=== PATIENT | female | born 1975 | race Caucasian/White ===

== ENCOUNTER 2022-03-05 18:02 | Emergency (ER) | payer BC, SELFPAY ==
--- NOTE | 2022-03-05 18:10 | ED.URI ---
HPI - URI/Sore Throat General Chief Complaint: Upper Respiratory Infection Stated Complaint: head congestion cough Time Seen by Provider: 03/05/22 18:10 Source: patient and RN notes reviewed History of Present Illness HPI Narrative: Patient is a 46-year-old female who presents the urgent care with complaints of cough, head congestion and headache. Patient states that started on Friday and then she woke up with fever blisters yesterday morning. Patient states that she has been using Mucinex. Denies of any fevers, nausea, vomiting. Denies of any ill exposures. No other acute complaints. No acute distress noted. Patient aware of the plan of care. Some parts of this dictation were generated by voice recognition software and may contain typographical and/or grammatical inaccuracies. Related Data Home Medications Medication Instructions Recorded Confirmed lisinopril 5 mg PO DAILY 03/05/22 03/05/22 metformin 500 mg PO TID 03/05/22 03/05/22 omeprazole 40 mg PO DAILY 03/05/22 03/05/22 rosuvastatin 10 mg PO DAILY 03/05/22 03/05/22 sitagliptin [Januvia] 100 mg PO DAILY 03/05/22 03/05/22 Allergies Allergy/AdvReac Type Severity Reaction Status Date / Time No Known Drug Allergies Allergy Unknown Unknown Verified 03/05/22 18:22 Review of Systems Review of Systems: CONSTITUTIONAL: Denies fever, chills, or sweats. EYES: Denies visual changes, redness, or discharge. ENT: Reports of rhinorrhea, head pressure and postnasal drainage CARDIOVASCULAR: Denies chest pain, palpitations, or edema. RESPIRATORY: Reports of cough without dyspnea GASTROINTESTINAL: Denies abdominal pain, nausea, vomiting, or diarrhea. GENITOURINARY: Denies dysuria or hematuria. SKIN: Denies rash or itching. MUSCULOSKELETAL: Denies back pain, joint pain, or myalgia. NEUROLOGIC: Denies headache, numbness, or weakness. All other systems reviewed are negative, except as documented in HPI. FORMERLY [facility] Family History Family History (Updated 06/02/17 @ 10:53 by DOCTOR UNKNOWN) Father Diabetes mellitus Hypertension Family history of malignant neoplasm Social History Social History Smoking status: Never smoker Alcohol intake: current Comments At the time of my signature, I reviewed and agree with the nursing past medical, surgical, social, and family history. There is no relevant family history pertinent to the patient complaint. Exam Narrative: GENERAL: This is a well-nourished, well-developed patient, in no apparent distress. HEAD: normocephalic, atraumatic. Frontal sinus tenderness EYES: PERRL. Sclera clear/white. Vision is grossly intact. EARS: External ears normal, auditory canals clear and without drainage, TMs normal without perforation. Hearing grossly intact. NOSE: External nose normal with no obvious nasal discharge, nares without redness, clear rhinorrhea. THROAT: Mucous membranes moist. Moderate erythema noted posterior oropharynx. Notable herpes simplex lesions to the upper lip NECK: Neck supple CARDIOVASCULAR: Regular rate and rhythm without murmurs, gallops, or rubs. RESPIRATORY: Clear to auscultation. Breath sounds equal bilaterally. No wheezes, rales, or rhonchi. SKIN: warm, intact with no suspicious lesions or rash, good texture and turgor. NEURO: awake, alert, and oriented to person, place and time. There were no obvious focal neurologic abnormalities. EXTREMITIES: No clubbing, cyanosis, or edema. Course Course Level of Care: Express Care Visit Vital Signs Vital signs: Vital Signs Temperature 98.4 F 03/05/22 18:12 Pulse Rate 72 03/05/22 18:12 Respiratory Rate 16 03/05/22 18:12 Blood Pressure 133/80 03/05/22 18:12 Pulse Oximetry 100 03/05/22 18:12 Temperature 98.4 F 03/05/22 18:12 Pulse Rate 72 03/05/22 18:12 Respiratory Rate 16 03/05/22 18:12 Blood Pressure 133/80 03/05/22 18:12 Pulse Oximetry 100 03/05/22 18:12 Reviewed MDM - URI/Sore Throat MDM Narrative Medical decision making narra
[2022-03-05 18:12] VITALS: BP 133/80; PULSE 72; RESP 16; TEMP 36.9; O2SAT 100
== END 2022-03-05 18:40 | disposition home or self-care (01) ==
PROVIDERS: Emergency Provider Nurse Practitioner Family; PCP Family Medicine
DX: B00.1 Herpesviral vesicular dermatitis (principal); J32.9 Chronic sinusitis, unspecified; E78.00 Pure hypercholesterolemia, unspecified; I10 Essential (primary) hypertension; K21.9 Gastro-esophageal reflux disease without esophagitis; E11.9 Type 2 diabetes mellitus without complications
CPT/HCPCS: 99203; G0463

== ENCOUNTER 2022-08-28 10:47 | Emergency (ER) | payer BC, SELFPAY ==
--- NOTE | 2022-08-28 10:49 | ED.URI ---
HPI - URI/Sore Throat General Chief Complaint: Upper Respiratory Infection Stated Complaint: Chest Congestion Time Seen by Provider: 08/28/22 10:49 Source: patient and RN notes reviewed History of Present Illness HPI Narrative: Patient is a 46-year-old female who presents the urgent care with complaints of chest congestion, wheezing at night, runny nose, headache and head congestion. Patient states that she has been taking [id number] cough medication, TheraFlu, nasal spray and Advil. Denies any fever, nausea, vomiting. Denies of any ill contacts. Patient states that symptoms started on Friday. No other acute complaints. No acute distress noted. Patient aware of the plan of care. Some parts of this dictation were generated by voice recognition software and may contain typographical and/or grammatical inaccuracies. Related Data Home Medications Medication Instructions Recorded Confirmed lisinopril 5 mg tablet 5 mg PO DAILY 03/05/22 08/28/22 metformin 500 mg tablet,extended 500 mg PO TID 03/05/22 08/28/22 release 24 hr omeprazole 40 mg capsule,delayed 40 mg PO DAILY 03/05/22 08/28/22 release rosuvastatin 10 mg tablet 10 mg PO DAILY 03/05/22 08/28/22 sitagliptin 100 mg tablet (Januvia) 100 mg PO DAILY 03/05/22 08/28/22 Allergies Allergy/AdvReac Type Severity Reaction Status Date / Time No Known Drug Allergies Allergy Unknown Unknown Verified 08/28/22 10:52 Review of Systems Review of Systems: CONSTITUTIONAL: Denies fever, chills, or sweats. EYES: Denies visual changes, redness, or discharge. ENT: Reports of rhinorrhea, head congestion postnasal drainage CARDIOVASCULAR: Denies chest pain, palpitations, or edema. RESPIRATORY: Reports of cough without dyspnea GASTROINTESTINAL: Denies abdominal pain, nausea, vomiting, or diarrhea. GENITOURINARY: Denies dysuria or hematuria. SKIN: Denies rash or itching. MUSCULOSKELETAL: Denies back pain, joint pain, or myalgia. NEUROLOGIC: Reports of headache All other systems reviewed are negative, except as documented in HPI. [facility] Family History Family History (Updated 06/02/17 @ 10:53 by DOCTOR UNKNOWN) Father Diabetes mellitus Hypertension Family history of malignant neoplasm Social History Social History Smoking status: Never smoker Alcohol intake: current Comments At the time of my signature, I reviewed and agree with the nursing past medical, surgical, social, and family history. There is no relevant family history pertinent to the patient complaint. Exam Narrative: GENERAL: This is a well-nourished, well-developed patient, in no apparent distress. HEAD: normocephalic, atraumatic. EYES: PERRL. Sclera clear/white. Vision is grossly intact. EARS: External ears normal, auditory canals clear and without drainage, TMs normal without perforation. Hearing grossly intact. NOSE: External nose normal with no obvious nasal discharge, nares without redness, no rhinorrhea. THROAT: Mucous membranes moist, posterior pharynx clear. Moderate postnasal drainage NECK: Neck supple CARDIOVASCULAR: Regular rate and rhythm without murmurs, gallops, or rubs. RESPIRATORY: Clear to auscultation. Breath sounds equal bilaterally. No wheezes, rales, or rhonchi. SKIN: warm, intact with no suspicious lesions or rash, good texture and turgor. NEURO: awake, alert, and oriented to person, place and time. There were no obvious focal neurologic abnormalities. EXTREMITIES: No clubbing, cyanosis, or edema. Course Course Level of Care: Express Care Visit Vital Signs Vital signs: Vital Signs Temperature 99.3 F 08/28/22 10:52 Pulse Rate 83 08/28/22 10:52 Respiratory Rate 16 08/28/22 10:52 Blood Pressure 134/85 08/28/22 10:52 Pulse Oximetry 99 08/28/22 10:52 Oxygen Delivery Room Air 08/28/22 10:52 Temperature 99.3 F 08/28/22 10:52 Pulse Rate 83 08/28/22 10:52 Respiratory Rate 16 08/28/22 10:52 Blood Pressure 134/85 08/28/22 10:52 Pulse Oximet
[2022-08-28 10:52] VITALS: BP 134/85; PULSE 83; RESP 16; TEMP 37.4; O2SAT 99
== END 2022-08-28 11:15 | disposition home or self-care (01) ==
PROVIDERS: Emergency Provider Nurse Practitioner Family; PCP Family Medicine
DX: J32.9 Chronic sinusitis, unspecified (principal); E78.00 Pure hypercholesterolemia, unspecified; I10 Essential (primary) hypertension; K21.9 Gastro-esophageal reflux disease without esophagitis; E11.9 Type 2 diabetes mellitus without complications
CPT/HCPCS: 99213; G0463

== ENCOUNTER 2024-02-09 10:05 | Emergency (ER) | payer BC, SELFPAY ==
[2024-02-09 10:09] VITALS: BP 137/80; PULSE 80; RESP 20; TEMP 36.8; O2SAT 100
--- NOTE | 2024-02-09 10:15 | ED.URI ---
HPI - URI/Sore Throat General Chief Complaint: Upper Respiratory Infection Stated Complaint: poss sinus infection Time Seen by Provider: 02/09/24 10:17 Source: patient, RN notes reviewed and old records reviewed Mode of arrival: ambulatory Limitations: no limitations History of Present Illness HPI Narrative: 48 year old female who presents to [facility] care with complaints of cough, sinus pressure and drainage of green tinged nasal mucous for the past 6 days. Patient reports that she has frontal sinus pressure and cough which is worse at night. Patient reports that she also has some fever sores to her upper lip and wound like some antiviral medication for these. Patient reports that she has history of past sinus infections and has been taking some OTC arianna seltzer severe cold medication. Patient denies any shortness of breath with no tachypnea noted. MD elicited complaint: cough, rhinorrhea, nasal congestion, sinus pain and other (fever blister) Pertinent past history: sinusitis Onset (ago): day(s) (6) Severity: moderate Description of mucous: green Able to tolerate fluids by mouth: Yes Treatments prior to arrival: other (arianna seltzer severe cold) Related Data Home Medications Medication Instructions Recorded Confirmed lisinopril 5 mg tablet 5 mg PO DAILY 03/05/22 02/09/24 metformin 500 mg tablet,extended 500 mg PO TID 03/05/22 02/09/24 release 24 hr omeprazole 40 mg capsule,delayed 40 mg PO DAILY 03/05/22 02/09/24 release rosuvastatin 10 mg tablet 10 mg PO DAILY 03/05/22 02/09/24 sitagliptin phosphate 100 mg 100 mg PO DAILY 03/05/22 02/09/24 tablet (Januvia) Allergies Allergy/AdvReac Type Severity Reaction Status Date / Time prednisone Allergy Unknown Unknown Verified 02/09/24 10:33 Review of Systems Review of Systems: CONSTITUTIONAL: Reports malaise, chills, sweats, or fever. EYES: Denies visual changes, redness, or discharge. ENT: Reports rhinorrhea, congestion, sinus pain, no otalgia and no sore throat positive for fever blisters upper lip CARDIOVASCULAR: Denies chest pain, palpitations, or edema. RESPIRATORY: Reports cough.? Denies dyspnea. GASTROINTESTINAL: Denies abdominal pain, nausea, vomiting, diarrhea SKIN: Denies rash or itching. MUSCULOSKELETAL: Denies myalgia. NEUROLOGIC: Reports frontal headache. All systems reviewed & are unremarkable except as noted in HPI and below PMFSH Past Medical History Medical History (Updated 02/10/24 @ 08:48 by Adela Connelly NP) Diabetes Endometriosis Esophageal polyp excision of GERD (gastroesophageal reflux disease) Hyperlipemia, mixed Hypertension Surgical History Surgical History (Updated 02/10/24 @ 08:29 by Adela Connelly NP) H/O: hysterectomy Previous section Family History Family History (Updated 06/02/17 @ 10:53 by DOCTOR UNKNOWN) Father Diabetes mellitus Hypertension Family history of malignant neoplasm Social History Social History (Updated 02/10/24 @ 08:32 by Adela Connelly NP) Smoking status: Never smoker Alcohol intake: current Substance use type: does not use Living arrangements: with family Gender identity (if verbalized by the patient): Female Comments At time of signature, agree with nursing past medical, surgical, social and family history. There is no relevant family history pertinent to the presenting complaint Exam Narrative: GENERAL: Well-appearing, well-nourished, and in no acute distress. HEAD: Normocephalic EYES: PERRLA, conjunctivae clear ENT: Nares clear, turbinates edematous and erythematous, clear to greenish discharge, frontal sinus pressure.. Mucous membranes moist. TM pearly henry with dull light reflex bilaterally; no tragal tenderness. Oropharynx erythematous without lesions. Tonsils not enlarged and without exudate, no drooling, no hoarseness, no trismus, uvula midline.post nasal drainage noted. NECK: Supple. No lymphadenopathy CHEST: Clear
== END 2024-02-09 10:45 | disposition home or self-care (01) ==
PROVIDERS: Emergency Provider Registered Nurse; PCP Family Medicine
DX: J32.9 Chronic sinusitis, unspecified (principal); B00.1 Herpesviral vesicular dermatitis; E11.9 Type 2 diabetes mellitus without complications; Z79.84 Long term (current) use of oral hypoglycemic drugs; N80.9 Endometriosis, unspecified; K21.9 Gastro-esophageal reflux disease without esophagitis; E78.5 Hyperlipidemia, unspecified; I10 Essential (primary) hypertension
CPT/HCPCS: 99213; G0463

== ENCOUNTER 2024-03-26 08:03 | Emergency (ER) | payer BC, SELFPAY ==
--- NOTE | 2024-03-26 08:04 | ED.URI ---
HPI - URI/Sore Throat General Chief Complaint: Upper Respiratory Infection Stated Complaint: Cough Time Seen by Provider: 03/26/24 08:14 Source: patient, RN notes reviewed and old records reviewed Mode of arrival: ambulatory Limitations: no limitations History of Present Illness HPI Narrative: 48-year-old female presents to the [facility] with complaints of a cough that started on Friday, 2 days ago. Reports that she had some dizziness on Friday 2 days ago. None today. Patient reports not taking her diabetes medication for her cholesterol medication last night. Patient denies any chest pain MD elicited complaint: cough Related Data Home Medications Medication Instructions Recorded Confirmed lisinopril 5 mg tablet 5 mg PO DAILY 03/05/22 02/09/24 metformin 500 mg tablet,extended 500 mg PO TID 03/05/22 02/09/24 release 24 hr omeprazole 40 mg capsule,delayed 40 mg PO DAILY 03/05/22 02/09/24 release rosuvastatin 10 mg tablet 10 mg PO DAILY 03/05/22 02/09/24 sitagliptin phosphate 100 mg 100 mg PO DAILY 03/05/22 02/09/24 tablet (Januvia) Allergies Allergy/AdvReac Type Severity Reaction Status Date / Time prednisone Allergy Unknown Unknown Verified 02/09/24 10:33 Review of Systems Review of Systems: All systems reviewed & are unremarkable except as noted in HPI and below Constitutional: Constitutional: Reports no additional constitutional complaints Eyes: Eyes: Reports no additional eye complaints ENT: Reports system reviewed and no additional complaints, except as documented Cardiovascular: Cardiovascular: Reports no additional cardiovascular complaints, Denies chest pain and Denies dyspnea Respiratory: Respiratory: Reports as per HPI, Denies chest congestion, Reports cough and Denies dyspnea Gastrointestinal: Gastrointestinal: Reports no additional gastrointestinal complaints, Denies abdominal pain, Denies nausea and Denies vomiting Musculoskeletal: Musculoskeletal: Reports no additional musculoskeletal complaints Integumentary/Breasts: Skin/Breast: Reports system reviewed and no additional complaints, except as docu Neurologic: Reports system reviewed and no additional complaints, except as documented Psychiatric: Psychiatric: Reports no additional psychiatric complaints Allergic/Immunologic: Allergic/Immunologic: Reports no additional allergic/immunologic complaints PMFSH Past Medical History Medical History Diabetes Endometriosis Esophageal polyp excision of GERD (gastroesophageal reflux disease) Hyperlipemia, mixed Hypertension Surgical History Surgical History H/O: hysterectomy Previous section Family History Family History Father Diabetes mellitus Hypertension Family history of malignant neoplasm Social History Social History Smoking status: Never smoker Alcohol intake: current Substance use type: does not use Living arrangements: with family Gender identity (if verbalized by the patient): Female Comments At the time of my signature, I reviewed and agree with the nursing past medical, surgical, social, and family history. There is no relevant family history pertinent to the patient complaint. Exam Const: General: cooperative, healthy appearing, comfortable, no acute distress, well developed, alert and well nourished Nutritional Appearance: well nourished Orientation/consciousness: patient oriented x3 Limitations: no limitations HENMT: Head: normal to inspection Ears: hearing grossly normal bilaterally, external ears normal, TM's normal bilaterally, EAC's normal, mastoids normal and no periauricular adenopathy Face/Nose/Sinus: Normal external nose present, Normal nares present, Normal nasal mucous membranes and turbinates present, N
[2024-03-26 08:09] VITALS: BP 138/93; PULSE 83; RESP 20; TEMP 36.6; O2SAT 100
== END 2024-03-26 08:33 | disposition home or self-care (01) ==
PROVIDERS: Emergency Provider Nurse Practitioner; PCP Family Medicine
DX: J40 Bronchitis, not specified as acute or chronic (principal); R09.82 Postnasal drip; E11.9 Type 2 diabetes mellitus without complications; Z79.84 Long term (current) use of oral hypoglycemic drugs; N80.9 Endometriosis, unspecified; K21.9 Gastro-esophageal reflux disease without esophagitis; E78.5 Hyperlipidemia, unspecified; I10 Essential (primary) hypertension
CPT/HCPCS: 99213; G0463

== ENCOUNTER 2024-06-29 18:31 | Emergency (ER) | payer BC, SELFPAY ==
[2024-06-29 18:36] VITALS: BP 121/79; PULSE 81; RESP 20; TEMP 37.1; O2SAT 100
--- NOTE | 2024-06-29 18:44 | ED.URI ---
HPI - URI/Sore Throat General Chief Complaint: Upper Respiratory Infection Stated Complaint: sinus stuff History of Present Illness HPI Narrative: Patient presents with nasal congestion no fever no body aches no cough no shortness of breath no chest pain. Patient states she has a history of allergies and feels like she is having allergy flare. Patient states she uses her Flonase nasal spray and taking Zyrtec daily. Related Data Home Medications Medication Instructions Recorded Confirmed lisinopril 5 mg tablet 5 mg PO DAILY 03/05/22 06/29/24 metformin 500 mg tablet,extended 500 mg PO TID 03/05/22 06/29/24 release 24 hr omeprazole 40 mg capsule,delayed 40 mg PO DAILY 03/05/22 06/29/24 release rosuvastatin 10 mg tablet 10 mg PO DAILY 03/05/22 06/29/24 empagliflozin 25 mg tablet mg 06/29/24 (Jardiance) tirzepatide 2.5 mg/0.5 mL 2.5 mg subcut WEEKLY 06/29/24 06/29/24 subcutaneous pen injector (Humza) Allergies Allergy/AdvReac Type Severity Reaction Status Date / Time prednisone Allergy Unknown Unknown Verified 02/09/24 10:33 Review of Systems Review of Systems: CONSTITUTIONAL: Denies chills, or sweats. Reports fever and generalized body aches EYES: Denies visual changes, redness, or discharge. ENT: Denies otalgia. Reports nasal congestion runny nose and sore throat CARDIOVASCULAR: Denies chest pain, palpitations, or edema. RESPIRATORY: Denies dyspnea. Reports occasional cough GASTROINTESTINAL: Denies abdominal pain, nausea, vomiting, or diarrhea. GENITOURINARY: Denies dysuria or hematuria. SKIN: Denies rash or itching. MUSCULOSKELETAL: Denies back pain, joint pain, or myalgia. Reports generalized body aches NEUROLOGIC: Denies headache, numbness, or weakness. PSYCHIATRIC: Denies anxiety or depression. REPLACED BY [facility] Past Medical History Medical History Diabetes Endometriosis Esophageal polyp excision of GERD (gastroesophageal reflux disease) Hyperlipemia, mixed Hypertension Surgical History Surgical History H/O: hysterectomy Previous section Family History Family History Father Diabetes mellitus Hypertension Family history of malignant neoplasm Social History Social History Smoking status: Never smoker Alcohol intake: current Substance use type: does not use Living arrangements: with family Gender identity (if verbalized by the patient): Female Comments At time of signature, agree with nursing past medical, surgical, social and family history. There is no relevant family history pertinent to the presenting complaint Exam Narrative: The patient is a well-developed, well-nourished in no acute distress. SKIN: Skin is warm and dry without erythema, swelling or exudate. There is good turgor. No tenting. HEAD: Atraumatic. Normocephalic. No temporal or scalp tenderness. EYES: Moist and bright. Sclera and conjunctivae normal. No discharge. PERRLA. Extraocular motions intact. Gross visual acuity intact. EARS: Pinna is normal shape and contour. Clear external auditory canals. TM pearly roman with good cone of light, no erythema or suppuration. Bilateral cerumen noted no gross hearing deficit. NOSE: pink, moist mucosa with good air movement. Clear rhinorrhea without nasal flaring. Septum midline. Mouth: moist mucous membranes. THROAT; mild erythema noted to posterior oropharynx with moderate postnasal drainage. Without exudate or ulceration.. Uvula midline. Normal movement of soft palate. NECK: Supple and nontender with full range of motion without discomfort. No meningeal signs. LUNGS: Equal and bilateral breath sounds without wheezes, rales or rhonchi. CHEST: The chest wall is without retractions or use of accessory muscles. HEART: Has a regular rate and
== END 2024-06-29 18:50 | disposition home or self-care (01) ==
PROVIDERS: Emergency Provider Nurse Practitioner Family; PCP Family Medicine
DX: J30.9 Allergic rhinitis, unspecified (principal); E11.9 Type 2 diabetes mellitus without complications; Z79.84 Long term (current) use of oral hypoglycemic drugs; N80.9 Endometriosis, unspecified; K21.9 Gastro-esophageal reflux disease without esophagitis; E78.5 Hyperlipidemia, unspecified; I10 Essential (primary) hypertension
CPT/HCPCS: 99213; G0463